=== PATIENT | male | born 1955 | race Caucasian/White ===

== ENCOUNTER 2022-03-03 16:25 | Outpatient (CLI) | payer MEDICARE | END 2022-03-03 16:26 | disposition home or self-care (01) | LOC: NAV RAD 16:25 | PROVIDERS: ATTEND Family Medicine | DX: M47.22 Other spondylosis with radiculopathy, cervical region (principal); M54.31 Sciatica, right side; M54.32 Sciatica, left side; M50.11 Cervical disc disorder with radiculopathy, high cervical region; M47.816 Spondylosis without myelopathy or radiculopathy, lumbar region; M51.36 Other intervertebral disc degeneration, lumbar region; M25.78 Osteophyte, vertebrae; Q76.49 Other congenital malformations of spine, not associated with scoliosis | CPT/HCPCS: 72040; 72100 ==